=== PATIENT | female | born 1990 | race African-American/Black ===

== ENCOUNTER 2020-08-03 10:11 | Inpatient (IN) | payer BC ==
[2020-07-30 12:42] LABS: BASOPHILS # (AUTO) 0.1 (0.0-0.1); BASOPHILS % 0.6 % (0.0-1.0); EOSINOPHILS # (AUTO) 0.1 (0.0-0.4); EOSINOPHILS % 0.9 % (0.0-6.0); HEMATOCRIT 38.7 % (34.2-44.1); HEMOGLOBIN 11.9 g/dL (12.0-16.0); LYMPHOCYTES # (AUTO) 3.5 (1.0-3.2); LYMPHOCYTES % 29.4 % (18.0-39.1); MEAN CORPUSCULAR HEMOGLOBIN 25.5 pg (28-32); MEAN CORPUSCULAR HGB CONC 30.7 g/dL (31-35); MONOCYTES % 8.5 % (4.4-11.3); NEUTROPHILS # (AUTO) 7.1 (2.1-6.9); NEUTROPHILS % 60.2 % (38.7-80.0); PLATELET COUNT 352 x10e3/uL (140-360); RED BLOOD COUNT 4.66 x10e6/uL (3.6-5.1); RED CELL DISTRIBUTION WIDTH 15.7 % (11.7-14.4)
[~2020-08-03] VITALS: Ht 160 cm; Wt 117.9 kg
[~2020-08-03 10:11] MED LIST: MULTI-VITAMIN1 EACH PO
[2020-08-03] MEDS ORDERED: SCOPOLAMINE 1.5 MG PATCH TOP SCH (10:30)
[2020-08-03] MEDS ORDERED: CEFAZOLIN SOD 1 GM/NS 50ML 100 ML IV ONE (10:49)
[2020-08-03] MEDS ORDERED: BUPIVACAINE 0.25% 30ML SDV ONE (11:34)
[2020-08-03] MEDS ORDERED: METOCLOPRAMIDE HCL 10 MG/2ML VIAL ONE (12:53)
[2020-08-03] MEDS ORDERED: ONDANSETRON HCL INJ 2MG/ML 2ML 2 MG/ML VIAL ONE ×2 (12:53→13:02)
[2020-08-03] MEDS ORDERED: HYDROMORPHONE 1MG/1ML INJ ONE (12:53)
[2020-08-03] MEDS ORDERED: NEOSTIGMINE 1 MG/ML 10ML VIAL ONE (13:02)
[2020-08-03] MEDS ORDERED: LIDOCAINE HCL 2% LOCAL INJ 5 ML SDV VIAL INJ ONE (13:02)
[2020-08-03] MEDS ORDERED: DEXAMETHASONE SOD PHOS INJ 4 MG/ML VIAL ONE (13:02)
[2020-08-03] MEDS ORDERED: SEVOFLURANE INHAL SOLN 250 ML PEN BTL ONE (13:02)
[2020-08-03] MEDS ORDERED: PROPOFOL IV EMULSION 10 MG/ML 20 ML VIAL ONE (13:02)
[2020-08-03] MEDS ORDERED: GLYCOPYRROLATE INJ 0.2 MG/ML VIAL ONE (13:02)
[2020-08-03] MEDS ORDERED: SCOPOLAMINE 1.5 MG PATCH ONE (13:11)
[2020-08-03] MEDS ORDERED: FENTANYL CITRATE/PF 100MCG/2 ML INJ ONE ×2 (13:11→14:04)
[2020-08-03] MEDS ORDERED: MIDAZOLAM HCL 2 MG/2 ML VIAL ONE (13:11)
[2020-08-03 16:10] VITALS: BP 109/65
[2020-08-03] MEDS: LACTATED RINGER'S 1,000 ML IV SCH ×2 (16:14→22:24)
[2020-08-03] MEDS: MORPHINE SULFATE 2 MG/ML SYR 1ML IV PRN ×2 (16:14→21:58)
[2020-08-03] MEDS: ONDANSETRON HCL INJ 2MG/ML 2ML 2 MG/ML VIAL IV PRN (17:15)
[2020-08-03 17:52] VITALS: BP 109/65
[2020-08-03 17:58] VITALS: BP 109/65
[2020-08-03 20:00] VITALS: BP_SYST 105; BP_SYST 130; BP_DIAS 51; BP_DIAS 85
[2020-08-03 21:00] VITALS: BP 105/51
[2020-08-03] MEDS: ENOXAPARIN SOD INJ 40 MG/0.4 ML SYR SC SCH (22:24)
[2020-08-04] VITALS: BP 105/63
[2020-08-04 04:00] VITALS: BP 89/53
[2020-08-04] MEDS: LACTATED RINGER'S 1,000 ML IV SCH (04:07)
[2020-08-04] MEDS: ONDANSETRON HCL INJ 2MG/ML 2ML 2 MG/ML VIAL IV PRN ×2 (04:07→08:10)
[2020-08-04 04:54] VITALS: BP 121/64
[2020-08-04] MEDS: MORPHINE SULFATE 2 MG/ML SYR 1ML IV PRN (05:00)
[2020-08-04 05:20] LABS: BASOPHILS % 0.2 % (0.0-1.0); HEMATOCRIT 35.2 % (34.2-44.1); HEMOGLOBIN 11.1 g/dL (12.0-16.0); LYMPHOCYTES # (AUTO) 2.2 (1.0-3.2); LYMPHOCYTES % 11.8 % (18.0-39.1); MEAN CORPUSCULAR HEMOGLOBIN 25.7 pg (28-32); MEAN CORPUSCULAR HGB CONC 31.5 g/dL (31-35); MEAN CORPUSCULAR VOLUME 81.5 fL (81-99); MONOCYTES # (AUTO) 1.2 (0.2-0.8); MONOCYTES % 6.4 % (4.4-11.3); NEUTROPHILS # (AUTO) 15.3 (2.1-6.9); PLATELET COUNT 363 x10e3/uL (140-360); RED BLOOD COUNT 4.32 x10e6/uL (3.6-5.1); RED CELL DISTRIBUTION WIDTH 15.5 % (11.7-14.4)
[2020-08-04 06:04] LABS: ALANINE AMINOTRANSFERASE 11 IU/L (0-55); ALBUMIN/GLOBULIN RATIO 0.8 (0.8-2.0); ALKALINE PHOSPHATASE 54 IU/L (40-150); BLOOD UREA NITROGEN 6 mg/dL (7-26); BUN/CREATININE RATIO 8 (6-25); CALCIUM 8.5 mg/dL (8.4-10.2); CARBON DIOXIDE 25 mmol/L (22-29); CHLORIDE 104 mmol/L (98-107); EST GLOMERULAR FILTRATION RATE > 60 ML/MIN (60-); GLUCOSE 107 mg/dL (74-118); MAGNESIUM 1.9 MG/DL (1.3-2.1); SODIUM 136 mmol/L (136-145)
[2020-08-04] MEDS ORDERED: HYDROCODONE/APAP 7.5MG-325MG 1 EA TAB PO PRN (07:00)
[2020-08-04] MEDS: ENOXAPARIN SOD INJ 40 MG/0.4 ML SYR SC SCH (07:54)
[2020-08-04 08:00] VITALS: BP 110/69
[2020-08-04 08:16] VITALS: BP 110/69
[2020-08-04] MEDS ORDERED: PROMETHAZINE 12.5MG/ NACL 0.9% 12.5 MG/50 ML BAG IV PRN (09:00)
[2020-08-04] MEDS ORDERED: TYLENOL # 31 EA PO (11:00)
[2020-08-04] MEDS ORDERED: ZOFRAN4 MG PO (11:01)
[2020-08-04 11:48] VITALS: BP 133/88
== END 2020-08-04 11:48 | disposition home or self-care (01) | DRG 621 ==
LOC: OR 10:11 → PACU V 10:31 → MED/SURG2 15:59
PROVIDERS: ADMIT Internal Medicine; ATTEND Internal Medicine
PROC: 0DB64Z3 Excision of Stomach, Percutaneous Endoscopic Approach, Vertical (ICD-10-PCS; principal; 2020-08-03 12:30)
DX: E66.01 Morbid (severe) obesity due to excess calories (principal); Z68.42 Body mass index [BMI] 45.0-49.9, adult; M17.0 Bilateral primary osteoarthritis of knee; F32.9 Major depressive disorder, single episode, unspecified; Z20.828 Contact with and (suspected) exposure to other viral communicable diseases
CPT/HCPCS: 36415; 80053; 81025; 83735; 84100; 85025; J0690; J1100; J1170; J1650; J2001; J2250; J2270; J2405; J2710; J2765; J3010; J7121; U0002